=== PATIENT | male | born 1995 | race Caucasian/White ===

== ENCOUNTER 2017-01-09 11:44 | Emergency (ER) | payer OTHER ==
[2017-01-09 12:06] VITALS: BP 132/87; RESP 14; TEMP 98.1; O2SAT 96
--- NOTE | 2017-01-09 12:08 | EDPHY ---
H & P Time Seen by Provider: 01/09/17 12:05 HPI/ROS: Chief complaint. Head injury HPI. 21-year-old male presents emergency department 4 days after head injury. He was skateboarding at a skate park and struck his head on a metal rail. He was wearing a helmet. He had loss of consciousness. He then hit his head again yesterday standing up into a microwave door which really exacerbated is headache. He also has neck pain somewhat worse on the right side but also over the back of his neck. He has had previous concussions. He also did injure his left foot but has been walking on it and continuing to skateboard. Otherwise no chest discomfort trouble breathing other back pain or injury to arms or legs. No change in vision. No focal weakness or paresthesias ROS Constitutional. no fever/chills, no weakness Eyes. no problems with vision ENT. no sore throat, no nasal drainage Cardiovascular. no chest pain Respiratory. no shortness of breath, no cough Abdominal. no abdominal pain, no nausea/vomiting, no diarrhea . no problems urinating MS. neck pain Skin. no rash Lymph. no swollen glands Neuro. Headache Past Medical/Surgical History: Previous concussions Social History: Single, daily smoker, no alcohol Smoking Status: Current some day smoker Physical Exam: General Appearance: Alert well-developed male mild distress vital signs are stable Eyes: Pupils equal and round no pallor or injection. ENT, no hemotympanum or Andrade sign. No oral pharyngeal or dental trauma. No bump to head Respiratory: There are no retractions, lungs are clear to auscultation. Cardiovascular: Regular rate and rhythm. Gastrointestinal: Abdomen is soft and nontender, no masses, bowel sounds normal. Neurological: Awake and alert, sensory and motor exams grossly normal. Skin: Warm and dry, no rashes. Musculoskeletal: Neck is tender over the cervical spine. No TLS spine tenderness Extremities symmetrical, full range of motion. Psychiatric: Patient is oriented X 3, there is no agitation. Constitutional: Initial Vital Signs Temperature (C) 36.7 C 01/09/17 12:03 Heart Rate 69 01/09/17 12:03 Respiratory Rate 14 01/09/17 12:03 Blood Pressure 132/87 H 01/09/17 12:03 O2 Sat (%) 96 01/09/17 12:03 O2 Delivery Mode Room Air Allergies/Adverse Reactions: No Known Allergies Allergy (Unverified 01/09/17 12:05) Home Medications: Medication Instructions Recorded Hydrocodone/APAP 5/325 [Pinch 1 each PO Q4-6PRN PRN #10 tab 01/09/17 5/325 (*)] Medical Decision Making - Diagnostics Imaging Results: Imaging Impressions Cervical Spine CT 01/09/17 12:14 Impression: 1. No significant intracranial abnormality seen. 2. Normal CT cervical spine. If symptoms worsen, additional imaging may be necessary. Findings discussed with Ernie Berry M.D. at 12:45 hour, 01/09/2017. Head CT 01/09/17 12:14 Impression: 1. No significant intracranial abnormality seen. 2. Normal CT cervical spine. If symptoms worsen, additional imaging may be necessary. Findings discussed with Ernie Berry M.D. at 12:45 hour, 01/09/2017. CT head and cervical spine reviewed by me and discussed with Dr. Watkins shows no evidence for fracture dislocation Procedures: Ibuprofen 800 mg by mouth ED Course/Re-evaluation: Re-evaluation 12:50 p.m.--patient is stable. He and I discussed imaging study results, treatment plan including criteria for return importance of follow-up and further evaluation. He expresses understanding and agreement Differential Diagnosis: I considered concussion, skull fracture, intracranial bleeding, cervical spine injury - Data Points Medications Given: Discontinued Medications Ibuprofen (Motrin) 800 mg PO EDNOW ONE Stop: 01/09/17 12:18 Last Admin: 01/09/17 12:27 Dose: 800 mg Departure - Departure Disposition: Home, Routine, Self-Care Clinical Impression: Concussion Qualifiers: Encounter type: initial encounter Loss of consciousness presence/duration: with LOC of 30 min or less Qualified Code(s): S06.0X1A - Concussion with loss of consciousness of 30 minutes or less, initial encounter Condition: Good Instructions: Concussion (ED), Post Concussion Syndrome (ED) Additional Instructions: No activity that may result in head injury for the next week. Ibuprofen 800 mg every 6 hours as needed for headache and discomfort. Hydrocodone in addition if necessary. Return for worsening symptoms. Follow up with Dr. Foster in 3 -4 days if not improving Referrals: NONE *PRIMARY CARE P,. [Primary Care Provider] - As per Instructions Trupti Foster MD [Medical Doctor] - 3-4 days, if not improved Stand Alone Forms: Work Excuse Prescriptions: Hydrocodone/APAP 5/325 [Pinch 5/325 (*)] 1 each PO Q4-6PRN PRN #10 tab PRN Reason: Pain, Moderate
[2017-01-09] MEDS ORDERED: IBUPROFEN 200 MG TAB PO ONE (12:17)
[2017-01-09 13:19] VITALS: PULSE 65
== END 2017-01-09 13:18 | disposition home or self-care (01) ==
LOC: CED 11:44
DX: S06.0X1A Concussion with loss of consciousness of 30 minutes or less, initial encounter (principal); F17.200 Nicotine dependence, unspecified, uncomplicated; W22.8XXA Striking against or struck by other objects, initial encounter; Y92.89 Other specified places as the place of occurrence of the external cause; Y99.8 Other external cause status; Y93.51 Activity, roller skating (inline) and skateboarding
CPT/HCPCS: 70450-PO; 72125-PO